=== PATIENT | female | born 2000 ===

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

== ENCOUNTER 2021-01-13 09:36 | Outpatient (REF) | payer OTHER, SELFPAY ==
[2021-01-14 03:30] LABS: CT PCR NOT DETECTED (Not Detect.); NG PCR NOT DETECTED (Not Detect.)
[2021-01-14 12:34] LABS: BV Int Neg Control Negative (Negative); BV Int Pos Control Positive (Positive)
== END 2021-01-13 09:37 | disposition home or self-care (01) ==
LOC: HO.LAB 09:36
PROVIDERS: Obstetrics & Gynecology; PCP Physician Assistant; Visit Provider Dietitian, Registered
DX: Z01.419 Encounter for gynecological examination (general) (routine) without abnormal findings (principal); R10.2 Pelvic and perineal pain; E28.2 Polycystic ovarian syndrome; Z20.2 Contact with and (suspected) exposure to infections with a predominantly sexual mode of transmission; E66.9 Obesity, unspecified; N28.9 Disorder of kidney and ureter, unspecified; Z71.3 Dietary counseling and surveillance
CPT/HCPCS: 81025; 87480; 87491; 87510; 87591; 87660; 97802

== ENCOUNTER → 2021-02-17 10:31 | Outpatient (BNVA) | payer OTHER, SELFPAY | PROVIDERS: PCP Pediatrics; Visit Provider Dietitian, Registered | DX: E66.9 Obesity, unspecified (principal) | CPT/HCPCS: 97803 ==

== ENCOUNTER → 2021-03-10 09:03 | Outpatient (BNVA) | payer OTHER, SELFPAY | PROVIDERS: PCP Pediatrics; Visit Provider Internal Medicine Endocrinology, Diabetes & Metabolism ==

== ENCOUNTER 2021-04-27 10:36 | Outpatient (REF) | payer OTHER, SELFPAY ==
--- NOTE | ~2021-04-27 | US_ITS ---
EXAMINATION: US PELVIS CLINICAL INFORMATION: Pelvic and perineal pain COMPARISON: Pelvic ultrasound 09/29/2020 TECHNIQUE: The pelvis was evaluated using transabdominal and transvaginal imaging. Color Doppler imaging of the bilateral ovaries was also performed. FINDINGS: The uterus measures 7.8 x 3.8 x 4.9 cm in longitudinal by AP by transverse dimension. The endometrial stripe measures 1.2 cm. The cervix measures approximately 2.7 cm in length. Small nabothian cysts identified. A small amount of fluid is noted within the endocervical canal. The left ovary measures approximately 3.2 x 2.4 x 1.9 cm and is normal. The right ovary measures approximately 4.4 x 2.5 x 2.2 cm and is also normal. Normal color Doppler flow of both ovaries. There are no abnormal adnexal masses. Small amount of free pelvic fluid in the pelvis. US/US pelvic and transvaginal IMPRESSION: Unremarkable sonographic imaging of the pelvis.
== END 2021-04-27 10:37 | disposition home or self-care (01) ==
LOC: HO.US 10:36
PROVIDERS: Visit Provider Obstetrics & Gynecology
DX: R10.2 Pelvic and perineal pain (principal)
CPT/HCPCS: 76830; 76856

== ENCOUNTER → 2021-05-08 11:40 | Outpatient (BNVA) | payer OTHER, SELFPAY | PROVIDERS: PCP Pediatrics; Visit Provider Obstetrics & Gynecology ==

== ENCOUNTER 2021-09-27 08:56 | Emergency (ER) | payer OTHER, SELFPAY ==
[2021-09-27 09:16] VITALS: BP 115/60; PULSE 61; RESP 19; TEMP 36.6; O2SAT 98; BMI 29.2
[2021-09-27 09:51] LABS: COVID-19 Test Negative (Negative)
--- NOTE | 2021-09-27 10:50 | ED.GENADULT ---
HPI - General Adult General Chief complaint: General Medical Stated complaint: body aches Time Seen by Provider: 09/27/21 11:00 Source: patient Mode of arrival: ambulatory Limitations: no limitations History of Present Illness HPI narrative: 21-year-old female presents to ED for body aches headache and chills. Patient states having symptoms for the past 2 days. Patient states her boyfriend recently tested positive for COVID. Patient states she is vaccinated with Pfizer 2 doses. Patient did not get booster shot. Patient denies any chest pain or shortness of breath Related Data Home Medications Medication Instructions Recorded Confirmed hydrocortisone 2.5 % topical cream appl TOPICAL BID PRN 10/13/20 03/10/21 hydrochlorothiazide 25 mg tablet 25 mg PO DAILY tab 12/02/20 03/10/21 loratadine 10 mg tablet (Claritin) 10 mg PO DAILY 01/13/21 03/10/21 Previous Rx's Medication Instructions Recorded norgestimate 0.25 mg-ethinyl 1 tab PO DAILY #84 tab 01/13/21 estradiol 35 mcg tablet (Sprintec (28)) Allergies Allergy/AdvReac Type Severity Reaction Status Date / Time No Known Allergies Allergy Verified 01/13/21 14:14 [No Known Allergies*] Review of Systems Review of Systems: Only symptoms are headache, body ache, and chills. Yes all other systems are reviewed and are negative PMF Past Medical History Medical History Asthma Chronic pyelonephritis Obesity (BMI 30-39.9) PCOS (polycystic ovarian syndrome) (~10/13/20) Renal disease Renal hypoplasia Suicidal ideations Surgical History No pertinent past surgical history Family History Family History Father No problems noted. Mother No problems noted. Social History Social History Alcohol intake: never Patient Tobacco Use Status: Never used Tobacco Substance Use Type: Marijuana Advance Directives: No Advance Directives Information Provided: No Patient : No Gender identity: Female Physical Exam Vital Signs: Vital Signs: Last Vital Signs Temp 98 F 09/27/21 09:16 Pulse 61 09/27/21 09:16 Resp 19 09/27/21 09:16 BP 115/60 09/27/21 09:16 Pulse Ox 98 09/27/21 09:16 BMI result Body Mass Index 29.2 Const: General: cooperative, healthy appearing, comfortable, no acute distress, well developed, alert, awake and Physically active Orientation/consciousness: patient oriented x3 HENMT: Head: Yes normal to inspection, Yes No palpable skull fracture present, Yes normocephalic and Yes atraumatic Ears: hearing grossly normal bilaterally, external ears normal, TM's normal bilaterally, EAC's normal, mastoids normal and no periauricular adenopathy Throat: Yes posterior oropharynx normal, Yes tonsils normal and Yes uvula midline Neck: Neck: Yes normal visual inspection, Yes full ROM, Yes no lymphadenopathy, Yes no meningeal signs, Yes trachea midline, Yes supple, No anterior neck swelling and No tender Chest: Chest palpation & inspection: normal inspection of the chest and normal palpation of entire chest wall Resp: Effort & Inspection: normal respiratory effort and able to speak in complete sentences Auscultation: clear to auscultation bilaterally Cardio: Jugular venous distension: no JVD Heart sounds: S1 normal heart sound present and S2 normal heart sound present GI: Inspection: Yes normal to inspection, No abdominal wall ecchymosis and Yes visible pulsation Palpation (GI): Soft to palpation, not firm, nontender, no guarding and not rigid : General: No CVA tenderness and Yes no CVA tenderness Back/Spine/Pelvis: Back: no CVA tenderness, No CVA tenderness and No back tenderness Skin: General skin exam: no rashes or lesions noted and elasticity normal Neuro: General: patient oriented x3, gait normal, no meningeal signs and CN's II-XI intact bilaterally Cranial nerves: Yes CN's II-XII intact bilaterally Extrem: General: Yes normal to inspection and Yes full ROM Psych: Appearance: grossly normal, well kempt and not disheveled Course Course Course Narrative: Patient tested for COVID Reevaluation(s) Reevaluation #1: COVID test negative. Patient informed Medical Decision Making MDM Narrative Medical decision making narrative: Viral syndrome Lab Data Labs: Lab Results 09/27/21 Range/Units 09:29 COVID-19 ([facility]YA) Negative (Negative) COVID-19 Clin Com See Note Discharge Plan Discharge Clinical Impression: Acute viral syndrome Patient Disposition: Home, Self-Care Instructions: Viral Syndrome (ED) Additional Instructions: You came back negative for COVID-19. This may be a false negative due to recent exposure. Recommend retesting in 5 days. Return to the ED immediately for any chest pain, shortness of breath, dizziness, weakness, or any other concerning symptoms. Prescriptions: No Action hydrocortisone 2.5 % cream topical BID PRNRF: 0 hydrochlorothiazide 25 mg tablet 25 mg PO DAILY RF: 0 loratadine [Claritin] 10 mg tablet 10 mg PO DAILY RF: 0 norgestimate-ethinyl estradiol [Sprintec (28)] 0.25-35 mg-mcg tablet 1 tab PO DAILY Qty: 84 RF: 3 Stand Alone Forms: Work/School Release Print Language: Singaporean
== END 2021-09-27 11:45 | disposition home or self-care (01) ==
LOC: HO.ED 11:20
PROVIDERS: Emergency Provider Emergency Medicine; PCP Pediatrics
DX: B34.9 Viral infection, unspecified (principal); Z20.822 Contact with and (suspected) exposure to COVID-19; R51.9 Headache, unspecified
CPT/HCPCS: 87635; 99283

== ENCOUNTER 2021-11-23 16:06 | Outpatient (REF) | payer OTHER, SELFPAY ==
[2021-11-23 16:42] LABS: Estimated Average Glucose 94 mg/dL; Hemoglobin A1c % 4.9 %
[2021-11-23 17:07] LABS: Alanine Aminotransferase 40 U/L (0-31); Albumin Level 4.5 g/dL (3.5-5.0); Alkaline Phosphatase 73 U/L (39-117); Anion Gap 11 (12-20); Aspartate Amino Transferase 17 U/L (5-31); Bilirubin Total 0.3 mg/dL (0.0-1.0); Blood Urea Nitrogen 15 mg/dL (9-16); Calcium 9.7 mg/dL (8.4-10.2); Carbon Dioxide 29 mmol/L (22-29); Chloride 103 mmol/L (96-108); Cholesterol 159 mg/dL; Estimated Glomerular Filt Rate > 60; Glucose Fasting 95 mg/dL (60-99); HDL Cholesterol 37 mg/dL; LDL Cholesterol Calculated 108 mg/dl; Potassium 4.2 mmol/L (3.3-5.1); Sodium 139 mmol/L (135-145); Total Protein 7.3 g/dL (6.5-8.0); Triglycerides 70 mg/dL
[2021-11-23 17:31] LABS: Free T4 (Free Thyroxine) 1.12 ng/dL (0.71-1.85)
[2021-11-24 14:11] LABS: DHEA Sulfate 350 mcg/dL (44-286); Follicle Stimulating Hormone 17.2 mIU/mL; Lutenizing Hormone 75.6 mIU/mL; Sex Hormone Binding Globulin 21 nmol/L (17-124)
[2021-11-28 14:22] LABS: Testosterone, Free 4.7 pg/mL (0.1-6.4); Testosterone, Total 26 ng/dL (2-45)
[2021-11-30 21:21] LABS: Estradiol Free 5.34 pg/mL; Estradiol, Ultrasensitive 216 pg/mL
[2021-12-01 19:27] LABS: 11-Deoxycortisol, LC/MS 25 ng/dL
== END 2021-11-23 16:07 | disposition home or self-care (01) ==
LOC: HO.LAB 16:06
PROVIDERS: PCP Physician Assistant; Visit Provider Internal Medicine Endocrinology, Diabetes & Metabolism
DX: E28.2 Polycystic ovarian syndrome (principal)
CPT/HCPCS: 36415; 80053; 80061; 82627; 82634; 82670; 82681; 83001; 83002; 83036; 83498; 84270; 84402; 84403; 84439; 84443

== ENCOUNTER → 2021-11-24 13:50 | Outpatient (BNVA) | payer OTHER, SELFPAY | PROVIDERS: PCP Physician Assistant; Visit Provider Internal Medicine Endocrinology, Diabetes & Metabolism | DX: E28.2 Polycystic ovarian syndrome (principal) | CPT/HCPCS: 99212 ==

== ENCOUNTER 2022-01-02 19:01 | Emergency (ER) | payer OTHER, SELFPAY ==
[2022-01-02 19:50] VITALS: BMI 28.3
[2022-01-02 19:55] VITALS: BP 128/76; PULSE 80; RESP 20; TEMP 37.1; O2SAT 100; BMI 28.3
[2022-01-02 20:01] LABS: MANUAL DIFF FLAG NO
[2022-01-02 20:03] LABS: Basophils Percent Auto 0.4 % (0-2); Eosinophils Absolute Auto 0.1 X10*3/uL (0.0-0.4); Eosinophils Percent Auto 1.4 % (0-4); Hematocrit 40.3 % (37.0-47.0); Hemoglobin 13.7 g/dl (12.0-16.0); Imm Gran Abs Auto 0.03 X10*3/uL (0.00-0.03); Imm Gran Pct Auto 0.3 % (0.0-0.4); Lymphocytes Absolute Auto 2.3 X10*3/uL (1.2-4.9); Lymphocytes Percent Auto 22.3 % (20-40); Mean Corpuscular Hemoglobin 29.8 pg (27.0-33.0); Mean Corpuscular Volume 87.6 fL (80.0-98.0); Mean Platelet Volume 9.8 fL (9.4-12.3); Monocytes Absolute Auto 0.6 X10*3/uL (0.1-1.2); Monocytes Percent Auto 5.6 % (2-11); Neutrophils Absolute Auto 7.3 x10*3/uL (2.0-8.3); Platelet Count 250 X10*3/uL (160-400); Red Cell Distribution Width 12.1 % (11.0-16.0); White Blood Count 10.4 X10*3/uL (4.8-10.8)
[2022-01-02 20:10] LABS: Appearance Urine CLEAR; Color Urine YELLOW; Glucose Urine UA NEG (NEG); Leukocyte Esterase Urine NEG (NEG); Nitrite Urine NEG (NEG); PH 6.5 (5.0-8.0); Urine Blood NEG (NEG); Urine Ketones NEG (NEG); Urine Protein NEG (NEG-TRACE)
[2022-01-02 20:12] LABS: UPreg QC Valid YES; Urine Pregnancy POSITIVE (NEGATIVE)
[2022-01-02 20:16] LABS: RBC Urine 0 /HPF (0); Squamous Epithelial Cell Urine 1+ /LPF; WBC Urine 0 /HPF (0-4)
[2022-01-02 20:16] LABS: Anion Gap 10 (12-20); Blood Urea Nitrogen 10 mg/dL (9-16); Calcium 9.3 mg/dL (8.4-10.2); Carbon Dioxide 26 mmol/L (22-29); Chloride 106 mmol/L (96-108); Creatinine Clr Calc Pharmacy 114.4; Estimated Glomerular Filt Rate > 60; Glucose Random 103 mg/dL (60-115); Potassium 4.2 mmol/L (3.3-5.1); Sodium 138 mmol/L (135-145)
--- NOTE | 2022-01-02 21:57 | ED.GENADULT ---
HPI - General Adult General Chief complaint: Weakness Stated complaint: nausea,dizziness,tired Time Seen by Provider: 01/02/22 21:35 Source: patient and family (Mother) Mode of arrival: ambulatory History of Present Illness HPI narrative: 21-year-old female without significant past medical history presents with missed menstruation and now feeling nauseous, fatigued but denies any vomiting, fevers, chills, GI or symptoms. She denies any abdominal pain or vaginal bleeding. Related Data Home Medications Medication Instructions Recorded Confirmed hydrocortisone 2.5 % topical cream appl TOPICAL BID PRN 10/13/20 03/10/21 hydrochlorothiazide 25 mg tablet 25 mg PO DAILY tab 12/02/20 11/24/21 loratadine 10 mg tablet (Claritin) 10 mg PO DAILY 01/13/21 11/24/21 Previous Rx's Medication Instructions Recorded norgestimate 0.25 mg-ethinyl 1 tab PO DAILY #84 tab 01/13/21 estradiol 35 mcg tablet (Sprintec (28)) metformin 500 mg tablet 1,000 mg PO BID 30 Days #120 tab 11/24/21 pyridoxine (vitamin B6) 25 mg 25 mg PO TID 30 Days #90 tab 01/02/22 tablet Allergies Allergy/AdvReac Type Severity Reaction Status Date / Time No Known Allergies Allergy Verified 11/24/21 13:53 [No Known Allergies*] Review of Systems Review of Systems: Pertinent positives and negatives as stated in HPI 10 point review of systems is otherwise negative. [facility] Past Medical History Source: nursing notes reviewed Medical History Asthma Chronic pyelonephritis Obesity (BMI 30-39.9) PCOS (polycystic ovarian syndrome) (~10/13/20) Renal disease Renal hypoplasia Suicidal ideations Surgical History No pertinent past surgical history Family History Family History Father No problems noted. Mother No problems noted. Social History Social History Alcohol intake: current Alcohol intake frequency: does not drink Patient Tobacco Use Status: Never used Tobacco Substance Use Type: Marijuana Advance Directives: No Advance Directives Information Provided: No Gender identity: Female Physical Exam ED Vital Signs: Vital Signs - 24 hr 01/02/22 19:55 Temperature 98.7 F Pulse Rate 80 Respiratory Rate 20 Blood Pressure 128/76 Pulse Oximetry 100 BMI result Body Mass Index 28.3 VITAL SIGNS: Reviewed. GENERAL: Well developed, well nourished, in no acute distress. HEAD: Normocephalic/atraumatic EYES: PERRLA, EOMI EARS: Ext canals without abnormality NOSE: Nares patent bilateral OROPHARYNX: no oral lesions noted, posterior pharynx clear LUNGS: Normal breath sounds. No adventitious sounds or accessory muscle use. SpO2<100> CARDIOVASCULAR: Regular rate and rhythm without noted murmurs ABDOMEN: Soft, non-tender, non-distended with bowel sounds. SKIN: Inspection of the skin reveals no rashes NEUROLOGIC: Alert and oriented x 4. Strength and sensation to light touch were grossly intact x 4. Course Course Course Narrative: 21-year-old female with history and clinical presentation after review of all investigations consistent with and no evidence acute infection, anemia. Patient recommended to start on vitamins and follow-up with an gang punch operator. There is no evidence or concern for SAB at this time. Medical Decision Making Lab Data Result diagrams: 01/02/22 19:56 01/02/22 19:57 Labs: Lab Results 01/02/22 01/02/22 01/02/22 Range/Units 19:56 19:57 20:04 WBC 10.4 (4.8-10.8) X10*3/uL RBC 4.60 (4.20-5.50) X10*6/uL Hgb 13.7 (12.0-16.0) g/dl Hct 40.3 (37.0-47.0) % MCV 87.6 (80.0-98.0) fL MCH 29.8 (27.0-33.0) pg MCHC 34.0 (31.0-35.0) g/dl RDW 12.1 (11.0-16.0) % Plt Count 250 (160-400) X10*3/uL MPV 9.8 (9.4-12.3) fL Immature Gran % (Auto) 0.3 (0.0-0.4) % Neut % (Auto) 70.0 (45-73) % Lymph % (Auto) 22.3 (20-40) % [place] % (Auto) 5.6 (2-11) % Eos % (Auto) 1.4 (0-4) % Baso % (Auto) 0.4 (0-2) % Lymph # (Auto) 2.3 (1.2-4.9) X10*3/uL [place] # (Auto) 0.6 (0.1-1.2) X10*3/uL Eos # (Auto) 0.1 (0.0-0.4) X10*3/uL Baso # (Auto) 0.0 (0.0-0.2) X10*3/uL Abs Immat Gran (auto) 0.03 (0.00-0.03) X10*3/uL Absolute Neuts (auto) 7.3 (2.0-8.3) x10*3/uL Absolute Nucleated RBC 0.000 (0.0-0.012) X10*3/uL Nucleated RBC % (auto) 0.0 (0.0-0.2) /100WBC Sodium 138 (135-145) mmol/L Potassium 4.2 (3.3-5.1) mmol/L Chloride 106 (96-108) mmol/L Carbon Dioxide 26 (22-29) mmol/L Anion Gap 10 L (12-20) BUN 10 (9-16) mg/dL Creatinine 0.72 (0.5-1.4) mg/dL Estim Creat Clear Calc 114.4 Estimated GFR > 60 Random Glucose 103 (60-115) mg/dL Calcium 9.3 (8.4-10.2) mg/dL Urine Color Urine Appearance Urine pH (5.0-8.0) Ur Specific Friend (1.005-1.025) Urine Protein (NEG-TRACE) MG/DL Urine Glucose (UA) (NEG) MG/DL Urine Ketones (NEG) MG/DL Urine Blood (NEG) Urine Nitrite (NEG) Ur Leukocyte Esterase (NEG) Urine RBC (0) /HPF Urine WBC (0-4) /HPF Ur Squamous Epith Cells /LPF Urine Bacteria /LPF Urine Test POSITIVE H (NEGATIVE) 01/02/22 Range/Units 20:04 WBC (4.8-10.8) X10*3/uL RBC (4.20-5.50) X10*6/uL Hgb (12.0-16.0) g/dl Hct (37.0-47.0) % MCV (80.0-98.0) fL MCH (27.0-33.0) pg MCHC (31.0-35.0) g/dl RDW (11.0-16.0) % Plt Count (160-400) X10*3/uL MPV (9.4-12.3) fL Immature Gran % (Auto) (0.0-0.4) % Neut % (Auto) (45-73) % Lymph % (Auto) (20-40) % [place] % (Auto) (2-11) % Eos % (Auto) (0-4) % Baso % (Auto) (0-2) % Lymph # (Auto) (1.2-4.9) X10*3/uL [place] # (Auto) (0.1-1.2) X10*3/uL Eos # (Auto) (0.0-0.4) X10*3/uL Baso # (Auto) (0.0-0.2) X10*3/uL Abs Immat Gran (auto) (0.00-0.03) X10*3/uL Absolute Neuts (auto) (2.0-8.3) x10*3/uL Absolute Nucleated RBC (0.0-0.012) X10*3/uL Nucleated RBC % (auto) (0.0-0.2) /100WBC Sodium (135-145) mmol/L Potassium (3.3-5.1) mmol/L Chloride (96-108) mmol/L Carbon Dioxide (22-29) mmol/L Anion Gap (12-20) BUN (9-16) mg/dL Creatinine (0.5-1.4) mg/dL Estim Creat Clear Calc Estimated GFR Random Glucose (60-115) mg/dL Calcium (8.4-10.2) mg/dL Urine Color YELLOW Urine Appearance CLEAR Urine pH 6.5 (5.0-8.0) Ur Specific Friend 1.020 (1.005-1.025) Urine Protein NEG (NEG-TRACE) MG/DL Urine Glucose (UA) NEG (NEG) MG/DL Urine Ketones NEG (NEG) MG/DL Urine Blood NEG (NEG) Urine Nitrite NEG (NEG) Ur Leukocyte Esterase NEG (NEG) Urine RBC 0 (0) /HPF Urine WBC 0 (0-4) /HPF Ur Squamous Epith Cells 1+ /LPF Urine Bacteria NONE /LPF Urine Test (NEGATIVE) Discharge Plan Discharge Clinical Impression: Early stage of , related nausea, antepartum Patient Disposition: Home, Self-Care Instructions: Vitamins (By mouth), Vitamin B Complex (By mouth), Nausea and Vomiting in (ED), (ED) Additional Instructions: 1. Comience a jerald vitaminas prenatales. 2. Se le hawk proporcionado juana receta de medicamentos contra las n?useas para usar arin el embarazo 3. Deber? aumentar la cantidad de agua que ingiere debido a denton enfermedad renal subyacente en el contexto de estar embarazada. 4. Establecer atenci?n con un obstetra lo antes posible. Regrese a la yuniel de emergencias por cualquier dificultad, maddy calambres o dolor abdominal bajo, sangrado vaginal. Prescriptions: New pyridoxine (vitamin B6) 25 mg tablet 25 mg PO TID 30 Days Qty: 90 0RF No Action hydrocortisone 2.5 % cream topical BID PRN0RF hydrochlorothiazide 25 mg tablet 25 mg PO DAILY 0RF loratadine [Claritin] 10 mg tablet 10 mg PO DAILY 0RF norgestimate-ethinyl estradiol [Sprintec (28)] 0.25-35 mg-mcg tablet 1 tab PO DAILY Qty: 84 3RF metformin 500 mg tablet 1,000 mg PO BID 30 Days Qty: 120 4RF Referrals: Jeimy Perez PA-C [Primary Care Provider] - (Patient is ) Print Language: Dutch
== END 2022-01-02 22:46 | disposition home or self-care (01) ==
PROVIDERS: Emergency Provider Student in an Organized Health Care Education/Training Program; PCP Physician Assistant
DX: R53.1 Weakness (principal); R42 Dizziness and giddiness; Z79.899 Other long term (current) drug therapy
CPT/HCPCS: 36415; 80048; 81001; 81025; 85025; 99283; 99284

== ENCOUNTER → 2022-01-17 10:52 | Outpatient (BNVA) | payer OTHER, SELFPAY | PROVIDERS: PCP Physician Assistant; Visit Provider Advanced Practice Midwife | DX: Z32.01 Encounter for pregnancy test, result positive (principal); E28.2 Polycystic ovarian syndrome; N28.9 Disorder of kidney and ureter, unspecified; Z87.42 Personal history of other diseases of the female genital tract | CPT/HCPCS: 81025; 99202 ==

== ENCOUNTER 2022-01-19 10:19 | Outpatient (REF) | payer OTHER, SELFPAY ==
--- NOTE | ~2022-01-19 | US_ITS ---
EXAMINATION: OBSTETRICAL ULTRASOUND, FIRST TRIMESTER HISTORY: 21-year-old at 6.5 weeks of gestation Viability LMP: 12/03/2021 COMPARISON: None in this TECHNIQUE: Real time transabdominal imaging with color and M-mode Doppler. FINDINGS: A single, live IUP CRL of 3.5 mm c/w 6.0wks is noted. Heart Rate: 106 beats per minute. Both maternal ovaries are seen and appear normal. GESTATIONAL AGE: 1. GA from LMP: 6.5 wks 2. GA from AUA: 6.0 wks ESTIMATED DATE OF DELIVERY: 1. IFEOMA from LMP: 09/09/2022 2. IFEOMA from AUA: 09/14/2022 US/US OB <= 14 weeks fetus IMPRESSION: 1. A single live IUP 2. CRL consistent with 6.0 weeks 3. heart rate of 106 bpm is at the low end of normal for this gestational age. Thank you very much for this referral. This note was generated with a voice recognition program. Please excuse any errors which may have been overlooked during my review of this note. Sometimes these errors may affect the content or meaning of a given sentence.
== END 2022-01-19 10:20 | disposition home or self-care (01) ==
LOC: HO.US 10:19
PROVIDERS: Visit Provider Advanced Practice Midwife
DX: O99.281 Endocrine, nutritional and metabolic diseases complicating pregnancy, first trimester (principal); O26.891 Other specified pregnancy related conditions, first trimester; E28.2 Polycystic ovarian syndrome; N28.9 Disorder of kidney and ureter, unspecified; Z3A.01 Less than 8 weeks gestation of pregnancy
CPT/HCPCS: 76801

== ENCOUNTER 2023-01-12 12:00 | Emergency (ER) | payer OTHER, SELFPAY ==
[2023-01-12 12:04] VITALS: BP 129/78; PULSE 100; RESP 20; TEMP 36.8; O2SAT 98; BMI 30.4
--- NOTE | 2023-01-12 12:04 | ED_ITS ---
HPI - General Adult General Chief complaint: General Medical <NACHO Byers Last Filed: 01/12/23 12:08> Stated complaint: headache redness on r breast <NACHO Byers Last Filed: 01/12/23 12:08> Time Seen by Provider: 01/12/23 12:53 <NACHO Byers Last Filed: 01/12/23 12:08> Source: patient <NACHO Rosado Last Filed: 01/12/23 15:48> Mode of arrival: ambulatory <NACHO Rosado Last Filed: 01/12/23 15:48> Limitations: no limitations <NACHO Rosado Last Filed: 01/12/23 15:48> History of Present Illness HPI narrative: Patient is a 22 year old assigned female at with a history of PCOS presenting to the emergency department today with right breast pain and a headache. Patient states that she has been breast feeding and has noticed her right breast is warm, red, and swollen. Patient states that she also has a head ache. Patient denies any dizziness, lightheadedness, abdominal pain, nausea, vomiting, fever, chills, blurry vision, double vision, loss of vision, chest pain, difficulty breathing, shortness of breath, back pain, night sweats, pain with urination, increased urinary frequency, increased urinary urgency, blood in her urine or stool, syncope or a near syncopal episode, recent trauma or falls, bowel incontinence, bladder incontinence, bowel retention, bladder retention, or any other complaints at this time. <NACHO Rosado Last Filed: 01/12/23 15:48> Onset (ago): hour(s) <NACHO Rosado Last Filed: 01/12/23 15:48> Severity: mild <NACHO Rosado Last Filed: 01/12/23 15:48> Severity scale (1-10): 2 <NACHO Rosado Last Filed: 01/12/23 15:48> Relieving factors: none <NACHO Rosado Last Filed: 01/12/23 15:48> Exacerbating factors: none <NACHO Rosado Last Filed: 01/12/23 15:48> Associated symptoms: denies other symptoms <NACHO Rosado Last Filed: 01/12/23 15:48> Treatments prior to arrival: none <NACHO Rosado Last Filed: 01/12/23 15:48> Related Data Home medications: Home Medications Medication Instructions Recorded Confirmed prenat.vits,tony,[id number] 1 tab PO DAILY 01/17/22 01/17/22 Previous Rx's Medication Instructions Recorded cephalexin 500 mg capsule 500 mg PO Q6H 10 days #40 caps 01/12/23 <NACHO Byers Last Filed: 01/12/23 12:08> Allergies/adverse reactions: Allergies Allergy/AdvReac Type Severity Reaction Status Date / Time No Known Allergies Allergy Verified 01/17/22 11:00 [No Known Allergies*] <NACHO Byers Last Filed: 01/12/23 12:08> Review of Systems Constitutional: Constitutional: Reports no additional constitutional complaints, Denies chills, Denies fever(s), Reports headache(s) and Denies night sweats <NACHO Rosado Last Filed: 01/12/23 15:48> Eyes: Eyes: Reports no additional eye complaints, Denies blurry vision, Denies change in vision, Denies diplopia, Denies eye discharge, Denies loss of vision and Denies eye pain <NACHO Rosado Last Filed: 01/12/23 15:48> ENT: Denies dizziness and Reports headache(s) <NACHO Rosado Last Filed: 01/12/23 15:48> Cardiovascular: Cardiovascular: Reports no additional cardiovascular complaints, Denies chest pain, Denies lightheadedness, Denies Loss of Consciousness and Denies dyspnea <NACHO Rosado Last Filed: 01/12/23 15:48> Respiratory: Respiratory: Reports no additional respiratory complaints and Denies dyspnea <NACHO Rosado Last Filed: 01/12/23 15:48> Gastrointestinal: Gastrointestinal: Reports no additional gastrointestinal complaints, Denies abdominal pain, Denies melena, Denies hematochezia, Denies change in bowel habits and Denies change in stool character <NACHO Rosado Last Filed: 01/12/23 15:48> Genitourinary: Genitourinary: Denies hematuria, Denies urinary frequency, Denies dysuria, Denies urinary incontinence, Denies urinary hesitancy and Denies urinary urgency <NACHO Rosado - Last Filed: 01/12/23 15:48> Musculoskeletal: Musculoskeletal: Reports no additional musculoskeletal complaints, Denies numbness and Denies tingling <NACHO Rosado - Last Filed: 01/12/23 15:48> Integumentary/Breasts: Comments: right chest pain, swelling ,and redness <NACHO Rosado - Last Filed: 01/12/23 15:48> Neurologic: Denies dizziness, Reports headache(s), Denies loss of vision, Denies numbness and Denies tingling <NACHO Rosado - Last Filed: 01/12/23 15:48> Psychiatric: Psychiatric: Reports no additional psychiatric complaints <NACHO Rosado - Last Filed: 01/12/23 15:48> Endocrine: Endocrine: Reports no additional endocrine complaints <NACHO Rosado - Last Filed: 01/12/23 15:48> Hematologic/Lymphatic: Hematologic/Lymphatic: Reports no additional hematologic/lymphatic complaints <NACHO Rosado - Last Filed: 01/12/23 15:48> Allergic/Immunologic: Allergic/Immunologic: Reports no additional allergic/imm unologic complaints <NACHO Rosado - Last Filed: 01/12/23 15:48> PMFSH Past Medical History Attestation statement: The following information was validated with the patient. <NACHO Rosado - Last Filed: 01/12/23 15:48> Source: old records reviewed and nursing notes reviewed <NACHO Rosado - Last Filed: 01/12/23 15:48> Medical History: Medical History Asthma Chronic pyelonephritis Obesity (BMI 30-39.9) PCOS (polycystic ovarian syndrome) (~10/13/20) Renal disease Renal hypoplasia Suicidal ideations <NACHO Byers - Last Filed: 01/12/23 12:08> Surgical History: Surgical History No pertinent past surgical history <NACHO Byers - Last Filed: 01/12/23 12:08> Family History Family History: Family History Father No problems noted. Mother No problems noted. <NACHO Byers - Last Filed: 01/12/23 12:08> Social History Social History: Social History Alcohol intake: current Alcohol intake frequency: does not drink Patient Tobacco Use Status: Never used Tobacco Substance Use Type: Marijuana Advance Directives: No Advance Directives Information Provided: No Gender identity: Female <NACHO Byers - Last Filed: 01/12/23 12:08> Physical Exam ED Vital Signs: Vital Signs - 24 hr 01/12/23 12:04 Temperature 98.2 F Pulse Rate 100 Respiratory Rate 20 Blood Pressure 129/78 Pulse Oximetry 98 Oxygen Delivery Method Room Air BMI result Body Mass Index 30.4 <NACHO Byers - Last Filed: 01/12/23 12:08> Vital Signs - 24 hr 01/12/23 12:04 Temperature 98.2 F Pulse Rate 100 Respiratory Rate 20 Blood Pressure 129/78 Pulse Oximetry 98 Oxygen Delivery Method Room Air BMI result Body Mass Index 30.4 <NACHO Rosado - Last Filed: 01/12/23 15:48> Const General: cooperative, no acute distress, alert and awake <NACHO Rosado - Last Filed: 01/12/23 15:48> Nutritional Appearance: well nourished <NACHO Rosado - Last Filed: 01/12/23 15:48> Orientation/consciousness: patient oriented x3 <NACHO Rosado - Last Filed: 01/12/23 15:48> Limitations: no limitations <NACHO Rosado Last Filed: 01/12/23 15:48> HENMT Head: Yes normal to inspection and Yes atraumatic <NACHO Rosado - Last Filed: 01/12/23 15:48> Ears: hearing grossly normal bilaterally and external ears normal <NACHO Rosado Last Filed: 01/12/23 15:48> General nose exam: Normal external nose present, no nasal discharge noted and no epistaxis <Marissa Harry [place] - Last Filed: 01/12/23 15:48> Face and sinus: Yes normal facial exam, No abrasion and No laceration <Marissa Harry TN - Last Filed: 01/12/23 15:48> Mouth: Normal oral and palatal mucosa present, no drooling and no muffled voice <Marissa Harry TN - Last Filed: 01/12/23 15:48> Eyes General: appearance normal, both eyes and all related structures <Marissa Harry TN - Last Filed: 01/12/23 15:48> Periorbital: periorbital findings normal <Marissa Harry TN - Last Filed: 01/12/23 15:48> Eyelids: Yes eyelids normal <Marissa Harry TN - Last Filed: 01/12/23 15:48> Conjunctivae: conjunctivae normal <Marissa Stantonroger [place] - Last Filed: 01/12/23 15:48> Pupils: Equal, round and reactive pupils present <Marissa Stantonroger [place] - Last Filed: 01/12/23 15:48> EOM: EOMs intact bilaterally <Marissa Stantonroger TN - Last Filed: 01/12/23 15:48> Neck Neck: Yes normal visual inspection, Yes full ROM and Yes no lymphadenopathy <Marissa Stantonroger TN - Last Filed: 01/12/23 15:48> Chest Other: minimal redness and warmth to the 10 o'clock position of the right breast <Marissa Stantonroger TN - Last Filed: 01/12/23 15:48> Resp Effort & Inspection: normal respiratory effort and able to speak in complete sentences <Marissa Stantonroger TN - Last Filed: 01/12/23 15:48> GI Inspection: Yes normal to inspection <Marissa Stantonroger TN - Last Filed: 01/12/23 15:48> Neuro General: patient oriented x3 and moves all extremities <Marissa Stantonroger TN - Last Filed: 01/12/23 15:48> Cranial nerves: Yes Equal, round and reactive pupils present <Marissa Stantonroger [place] - Last Filed: 01/12/23 15:48> Cognition (Neuro): normal cognition <[place] Stantonroger [place] - Last Filed: 01/12/23 15:48> Motor exam (neuro): 5/5 motor strength present throughout <Marissa HarryNACHO - Last Filed: 01/12/23 15:48> Sensory Exam: Normal double simultaneous stimulation for sensation <Marissa Harry TN - Last Filed: 01/12/23 15:48> Coordination: [id number] test normal <Marissa Harry TN - Last Filed: 01/12/23 15:48> Extrem General: Yes normal to inspection, Yes full ROM and Yes capillary refill normal <Marissa HarryNACHO - Last Filed: 01/12/23 15:48> Psych Appearance: grossly normal <Marissa HarryNACHO - Last Filed: 01/12/23 15:48> Mental Status: mental status grossly normal <Marissa HarryNACHO - Last Filed: 01/12/23 15:48> Affect: normal affect <Marissa HarryNACHO - Last Filed: 01/12/23 15:48> Attitude: cooperative <Marissa HarryNACHO - Last Filed: 01/12/23 15:48> Thought process: Normal thought process present <Marissa HarryNACHO - Last Filed: 01/12/23 15:48> Thought content: Normal thought content present <Marissa HarryNACHO - Last Filed: 01/12/23 15:48> Insight: Good insight present (Psych) <Marissa HarryNACHO - Last Filed: 01/12/23 15:48> Course Course Course Narrative: RME - 80 presenting to the emergency department with complaints of headache since this morning and right breast pain since last night. She is currently breast feeding, and noticed pain in her right breast and woke up this morning and her right breast was red and swollen. Given privacy in triage room did not examine right breast and defer physical exam until patient is seen in the main ER. Patient has no fevers or chills. No hx of mastitis in the past. Will defer imaging to provider's discretion based on examination. VSS. Pt stable to return to the waiting room until a treatment room becomes available in the main ER. <NACHO Byers - Last Filed: 01/12/23 12:08> Medical Decision Making Medical Decision Making MDM Narrative: Patient is a 22 year old assigned female at with a history of PCOS presenting to the emergency department today with right breast pain and a headache. Patient's physical exam showed minimal redness and warmth to the 10 o'clock position of the right breast. Patient's blood work was unremarkable. I explained my physical exam findings as well as all test results to the patient. I answered all questions asked by the patient. I stressed the importance of the patient taking her medication as prescribed. I stressed the importance of the patient following up with her primary care provider. I stressed the importance of the patient returning to the emergency department immediately if her symptoms were to worsen or if she were to develop any dizziness, shortness of breath, difficulty breathing, chest pain, blurry vision, loss of vision, nausea, vomiting, abdominal pain, fever, chills, back pain, or any other complaints. Patient verbalized agreement and understanding with this treatment plan and discharge. <NACHO Rosado - Last Filed: 01/12/23 15:48> Differential Diagnosis Differential Diagnoses: The differential diagnosis associated with the presentation includes <NACHO Rosado - Last Filed: 01/12/23 15:48> mastitis, headache <NACHO Rosado - Last Filed: 01/12/23 15:48> Lab Data [facility] Lab Attestation statement: I reviewed the patient's lab results. <NACHO Rosado - Last Filed: 01/12/23 15:48> Result Diagrams: 01/12/23 13:44 01/12/23 13:44 <NACHO Byers - Last Filed: 01/12/23 12:08> Labs: Lab Results 01/12/23 01/12/23 01/12/23 Range/Units 13:44 13:44 13:44 WBC 12.1 H (4.8-10.8) X10*3/uL RBC 4.96 (4.20-5.50) X10*6/uL Hgb 14.1 (12.0-16.0) g/dl Hct 41.1 (37.0-47.0) % MCV 82.9 (80.0-98.0) fL MCH 28.4 (27.0-33.0) pg MCHC 34.3 (31.0-35.0) g/dl RDW 12.3 (11.0-16.0) % Plt Count 236 (160-400) X10*3/uL MPV 9.7 (9.4-12.3) fL Immature Gran % (Auto) 0.2 (0.0-0.4) % Neut % (Auto) 79.3 H (45-73) % Lymph % (Auto) 13.6 L (20-40) % Spalding % (Auto) 5.9 (2-11) % Eos % (Auto) 0.6 (0-4) % Baso % (Auto) 0.4 (0-2) % Lymph # (Auto) 1.7 (1.2-4.9) X10*3/uL Spalding # (Auto) 0.7 (0.1-1.2) X10*3/uL Eos # (Auto) 0.1 (0.0-0.4) X10*3/uL Baso # (Auto) 0.1 (0.0-0.2) X10*3/uL Abs Immat Gran (auto) 0.03 (0.00-0.03) X10*3/uL Absolute Neuts (auto) 9.6 H (2.0-8.3) x10*3/uL Absolute Nucleated RBC 0.000 (0.0-0.012) X10*3/uL Nucleated RBC % (auto) 0.0 (0.0-0.2) /100WBC Sodium 138 (135-145) mmol/L Potassium 4.8 (3.3-5.1) mmol/L Chloride 104 (96-108) mmol/L Carbon Dioxide 24 (22-29) mmol/L Anion Gap 15 (12-20) BUN 11 (9-16) mg/dL Creatinine 0.69 (0.5-1.4) mg/dL Estim Creat Clear Calc 151.9 Estimated GFR > 60 Random Glucose 83 (60-115) mg/dL Calcium 9.4 (8.4-10.2) mg/dL Magnesium 1.9 (1.6-2.6) mg/dL Total Bilirubin 1.0 (0.0-1.0) mg/dL AST 31 (5-31) U/L ALT 56 H (0-31) U/L Alkaline Phosphatase 139 H (39-117) U/L Total Protein 7.5 (6.5-8.0) g/dL Albumin 4.4 (3.5-5.0) g/dL Beta HCG, Quant < 2 mIU/mL <NACHO Byers - Last Filed: 01/12/23 12:08> Lab Results 01/12/23 01/12/23 01/12/23 Range/Units 13:44 13:44 13:44 WBC 12.1 H (4.8-10.8) X10*3/uL RBC 4.96 (4.20-5.50) X10*6/uL Hgb 14.1 (12.0-16.0) g/dl Hct 41.1 (37.0-47.0) % MCV 82.9 (80.0-98.0) fL MCH 28.4 (27.0-33.0) pg MCHC 34.3 (31.0-35.0) g/dl RDW 12.3 (11.0-16.0) % Plt Count 236 (160-400) X10*3/uL MPV 9.7 (9.4-12.3) fL Immature Gran % (Auto) 0.2 (0.0-0.4) % Neut % (Auto) 79.3 H (45-73) % Lymph % (Auto) 13.6 L (20-40) % Spalding % (Auto) 5.9 (2-11) % Eos % (Auto) 0.6 (0-4) % Baso % (Auto) 0.4 (0-2) % Lymph # (Auto) 1.7 (1.2-4.9) X10*3/uL Spalding # (Auto) 0.7 (0.1-1.2) X10*3/uL Eos # (Auto) 0.1 (0.0-0.4) X10*3/uL Baso # (Auto) 0.1 (0.0-0.2) X10*3/uL Abs Immat Gran (auto) 0.03 (0.00-0.03) X10*3/uL Absolute Neuts (auto) 9.6 H (2.0-8.3) x10*3/uL Absolute Nucleated RBC 0.000 (0.0-0.012) X10*3/uL Nucleated RBC % (auto) 0.0 (0.0-0.2) /100WBC Sodium 138 (135-145) mmol/L Potassium 4.8 (3.3-5.1) mmol/L Chloride 104 (96-108) mmol/L Carbon Dioxide 24 (22-29) mmol/L Anion Gap 15 (12-20) BUN 11 (9-16) mg/dL Creatinine 0.69 (0.5-1.4) mg/dL Estim Creat Clear Calc 151.9 Estimated GFR > 60 Random Glucose 83 (60-115) mg/dL Calcium 9.4 (8.4-10.2) mg/dL Magnesium 1.9 (1.6-2.6) mg/dL Total Bilirubin 1.0 (0.0-1.0) mg/dL AST 31 (5-31) U/L ALT 56 H (0-31) U/L Alkaline Phosphatase 139 H (39-117) U/L Total Protein 7.5 (6.5-8.0) g/dL Albumin 4.4 (3.5-5.0) g/dL Beta HCG, Quant < 2 mIU/mL <NACHO Rosado - Last Filed: 01/12/23 15:48> Discharge Plan Discharge Clinical Impression: Mastitis <NACHO Byers - Last Filed: 01/12/23 12:08> Patient Disposition: Home, Self-Care <NACHO Byers - Last Filed: 01/12/23 12:08> Instructions: Mastitis (ED) <NACHO Byers - Last Filed: 01/12/23 12:08> Additional Instructions: Follow up with your primary care provider. Return to the emergency department immediately if your symptoms worsen or if you develop any dizziness, shortness of breath, difficulty breathing, chest pain, blurry vision, loss of vision, nausea, vomiting, abdominal pain, fever, chills, back pain, or any other complaints. <NACHO Byers - Last Filed: 01/12/23 12:08> Prescriptions: New cephalexin 500 mg capsule 500 mg PO Q6H 10 Days Qty: 40 0RF No Action prenat.vits,tony,[id number]-[id number]-[id number] Tablet 1 tab PO DAILY <NACHO Byers - Last Filed: 01/12/23 12:08> Referrals: [facility] Family Medicine [Provider Group] (Call to establish and follow up with a primary care provider. If you already have a primary care provider, please follow up with them.) [facility] [facility], [facility] [Provider Group] (Call to establish and follow up with a primary care provider. If you already have a primary care provider, please follow up with them.) [facility] [place] [facility] [Provider Group] (Call to establish and follow up with a primary care provider. If you already have a primary care provider, please follow up with them.) <NACHO Byers - Last Filed: 01/12/23 12:08> Stand Alone Forms: Work/School Release <NACHO Byers - Last Filed: 01/12/23 12:08> Print Language: Lithuanian <NACHO Byers - Last Filed: 01/12/23 12:08>
--- NOTE | 2023-01-12 13:48 | PC.NURSE ---
Labs drawn and sent for analysis. Awaiting results. Provider (Marissa GRIFFITH) evaluated the patient. ?Right breast mastitis. Pt is 4 months with baby boy. Pt exclusively breastfeeds. Pt verbalized that she does not know how to manually express breastmilk. This RN to teach Aletheaelys how to manually/hand express breastmilk. Pt noticed redness & increased soreness last night, slightly worse this morning. Pt states that she has an IUD in place, HCG level pending.
[2023-01-12 13:52] LABS: MANUAL DIFF FLAG NO
[2023-01-12 13:53] LABS: Basophils Absolute Auto 0.1 X10*3/uL (0.0-0.2); Basophils Percent Auto 0.4 % (0-2); Eosinophils Absolute Auto 0.1 X10*3/uL (0.0-0.4); Eosinophils Percent Auto 0.6 % (0-4); Hematocrit 41.1 % (37.0-47.0); Hemoglobin 14.1 g/dl (12.0-16.0); Imm Gran Abs Auto 0.03 X10*3/uL (0.00-0.03); Imm Gran Pct Auto 0.2 % (0.0-0.4); Lymphocytes Absolute Auto 1.7 X10*3/uL (1.2-4.9); Lymphocytes Percent Auto 13.6 % (20-40); Mean Corpuscular HGB Conc 34.3 g/dl (31.0-35.0); Mean Corpuscular Hemoglobin 28.4 pg (27.0-33.0); Mean Corpuscular Volume 82.9 fL (80.0-98.0); Mean Platelet Volume 9.7 fL (9.4-12.3); Monocytes Absolute Auto 0.7 X10*3/uL (0.1-1.2); Monocytes Percent Auto 5.9 % (2-11); Neutrophils Absolute Auto 9.6 x10*3/uL (2.0-8.3); Neutrophils Percent Auto 79.3 % (45-73); Platelet Count 236 X10*3/uL (160-400); Red Blood Count 4.96 X10*6/uL (4.20-5.50); Red Cell Distribution Width 12.3 % (11.0-16.0); White Blood Count 12.1 X10*3/uL (4.8-10.8)
[2023-01-12 14:55] LABS: Alanine Aminotransferase 56 U/L (0-31); Albumin Level 4.4 g/dL (3.5-5.0); Alkaline Phosphatase 139 U/L (39-117); Anion Gap 15 (12-20); Aspartate Amino Transferase 31 U/L (5-31); Blood Urea Nitrogen 11 mg/dL (9-16); Calcium 9.4 mg/dL (8.4-10.2); Carbon Dioxide 24 mmol/L (22-29); Chloride 104 mmol/L (96-108); Creatinine Clr Calc Pharmacy 151.9; Estimated Glomerular Filt Rate > 60; Glucose Random 83 mg/dL (60-115); Magnesium 1.9 mg/dL (1.6-2.6); Potassium 4.8 mmol/L (3.3-5.1); Sodium 138 mmol/L (135-145); Total Protein 7.5 g/dL (6.5-8.0)
[2023-01-12 15:06] LABS: HCG Quantitative < 2 mIU/mL
== END 2023-01-12 16:00 | disposition home or self-care (01) ==
PROVIDERS: Physician Assistant Medical; Emergency Provider Emergency Medicine
DX: N61.0 Mastitis without abscess (principal)
CPT/HCPCS: 36415; 80053; 83735; 84702; 85025; 99283

== ENCOUNTER 2023-10-15 11:36 | Emergency (ER) | payer OTHER, SELFPAY ==
[2023-10-15 11:55] VITALS: BP 118/75; PULSE 106; RESP 18; TEMP 36.5; O2SAT 98; BMI 33.7
--- NOTE | 2023-10-15 11:57 | ED.GENADULT ---
HPI - General Adult General Chief complaint: Nausea/Vomiting/Diarrhea Stated complaint: headache, vomiting, diarrhea Time Seen by Provider: 10/15/23 13:12 Source: patient and RN notes reviewed Mode of arrival: ambulatory Limitations: no limitations History of Present Illness HPI narrative: This is a 23-year-old female presenting to the emergency department with complaints of headache, chills, nausea, vomiting, diarrhea which started at 5:00 p.m. last night. She denies any recent sick contacts. She is currently breast-feeding. Denies any fevers, chest pain, shortness breast, cough, sore throat. She does endorse urinary frequency, denies dysuria, hematuria, or urgency. She denies taking any medications at home to treat her current symptoms. Denies eating any undercooked or raw food. Denies hemoptysis or bloody or black diarrhea. Denies any other complaints or concerns at this time. MD complaint: Diarrhea, headache, chills Onset (ago): day(s) Radiation: non-radiation Quality: aching Pain Consistency: constant Relieving factors: none Exacerbating factors: none Associated symptoms: denies other symptoms Treatments prior to arrival: none Related Data Home Medications Medication Instructions Recorded Confirmed prenat.vits,tony,[id number] 1 tab PO DAILY 01/17/22 01/17/22 Previous Rx's Medication Instructions Recorded cephalexin 500 mg capsule 500 mg PO Q6H 10 days #40 caps 01/12/23 ondansetron 4 mg disintegrating 4 mg PO Q6-8H PRN nausea and 10/15/23 tablet vomiting #10 tabs Allergies Allergy/AdvReac Type Severity Reaction Status Date / Time No Known Allergies Allergy Verified 10/15/23 11:55 [No Known Allergies*] Review of Systems Review of Systems: Yes all other systems are reviewed and are negative Constitutional: Constitutional: Reports as per HPI [facility] Past Medical History Medical History Asthma Chronic pyelonephritis Obesity (BMI 30-39.9) PCOS (polycystic ovarian syndrome) (~10/13/20) Renal disease Renal hypoplasia Suicidal ideations Surgical History No pertinent past surgical history Family History Family History Father No problems noted. Mother No problems noted. Social History Social History Alcohol intake: current Alcohol intake frequency: does not drink Patient Tobacco Use Status: Never used Tobacco Smoked in Last 30 Days: No Use of substances other than those prescribed or required for medical reasons: No Substance Use Type: Marijuana Advance Directives: No Advance Directives Information Provided: No Gender identity: Female Physical Exam ED Vital Signs: Vital Signs - 24 hr 10/15/23 11:55 10/15/23 14:49 10/15/23 17:35 Temperature 97.7 F 98.7 F 99.3 F Pulse Rate 106 H 105 H 92 Respiratory Rate 18 16 20 Blood Pressure 118/75 127/74 117/69 Pulse Oximetry 98 99 98 Oxygen Delivery Method Room Air Room Air Room Air 10/15/23 20:00 Temperature 98 F Pulse Rate 93 Respiratory Rate 16 Blood Pressure 120/71 Pulse Oximetry 97 Oxygen Delivery Method Room Air BMI result Body Mass Index 33.7 Const General: cooperative, comfortable and no acute distress Orientation/consciousness: patient oriented x3 Limitations: no limitations HENMT Head: Yes normal to inspection, Yes normocephalic and Yes atraumatic Ears: hearing grossly normal bilaterally and TM's normal bilaterally General nose exam: Normal external nose present Face and sinus: Yes normal facial exam Mouth: Normal oral and palatal mucosa present, oropharynx normal and moist mucous membranes Throat: Yes posterior oropharynx normal Eyes General: appearance normal, both eyes and all related structures Eyelids: Yes eyelids normal Conjunctivae: conjunctivae normal Sclerae: sclerae normal Pupils: Equal, round and reactive pupils present EOM: EOMs intact bilaterally Neck Neck: Yes normal visual inspection, Yes full ROM and Yes no lymphadenopathy Lymphatic: no lymphadenopathy noted Chest Chest palpation & inspection: normal inspection of the chest Resp Effort & Inspection: normal respiratory effort and able to speak in complete sentences Auscultation: clear to auscultation bilaterally, no crackles, no rales, no rhonchi and no wheezes Cardio Rate: regular rate Rhythm: regular rhythm Heart sounds: S1 normal heart sound present and S2 normal heart sound present GI Other: Abdomen is soft, nontender, nondistended Inspection: Yes normal to inspection Skin General skin exam: no rashes or lesions noted Trauma: no lacerations or abrasions Wounds: no wounds Neuro General: patient oriented x3 and moves all extremities Cranial nerves: Yes Equal, round and reactive pupils present Extrem General: Yes normal to inspection Right upper extremity: normal to inspection Left upper extremity: normal to inspection Right lower extremity: normal to inspection Left lower extremity: normal to inspection Course Course Course Narrative: RME- 23-year-old female presents for evaluation of fevers, body aches, nausea and vomiting that started last night around 5:00 p.m.. Plan for viral swabs. She is quite well appearing Reevaluation(s) Reevaluation #1: Patient was requesting food and beverage about 1 hour ago which she ate without any vomiting. Chemistry still pending, has coagulated in the lab twice. Redraw will be performed. Patient has no leukocytosis, stable H&H. Tested negative for COVID and flu. Patient feeling slightly nauseous, Zofran 4 mg IV push ordered will continue to monitor. Time: 17:42 Reevaluation #2: Pt eating,drinking, symptoms improved and requesting dispo. Sxs likely viral, given return precautions. pt stable for d/c. Medications Administered Discontinued Medications Generic Name Dose Route Start Last Admin Trade Name Freq PRN Reason Stop Dose Admin Sodium Chloride 1,000 mls @ 999 mls/hr 10/15/23 14:30 10/15/23 17:19 Ns IV 10/15/23 15:30 Infused .Q1H1M ONE Infusion Ondansetron HCl 4 mg 10/15/23 17:39 10/15/23 18:50 Ondansetron Hcl 4 Mg/2 Ml Vial IVPUSH 10/15/23 17:40 4 mg ONCE ONE Administration Medical Decision Making Medical Decision Making [facility] Narrative: This is a 23-year-old female presenting to the emergency department for evaluation of nausea, vomiting, diarrhea chills. She endorses urinary frequency, denies any dysuria. Denies sick contacts. On arrival, vital signs within normal limits. She is eating and drinking without difficulty however endorsing nausea. Abdomen is soft, nontender. She is well appearing. Given multiple episodes of vomiting and diarrhea, will give 1 L of IV fluids plus or minus antiemetics. Will check basic labs to ensure no leukocytosis, or acute kidney injury. Differential Diagnosis Differential Diagnoses: The differential diagnosis associated with the presentation includes Dehydration, electrolyte abnormality, viral syndrome, gastroenteritis, gastritis, urinary tract infection Admission/Observation Consideration of admission/observation: Escalation of care including admission/observation considered Patient would have been admitted to the hospital had her work up had any findings where hospital admission was appropriate and her clinical presentation warranted hospital admission. Lab Data MDM Lab Attestation statement: I reviewed the patient's lab results. See course comment 10/15/23 15:12 10/15/23 17:44 Labs: Lab Results 10/15/23 10/15/23 10/15/23 Range/Units 12:52 15:12 17:44 WBC 9.6 (4.8-10.8) X10*3/uL RBC 4.97 (4.20-5.50) X10*6/uL Hgb 14.3 (12.0-16.0) g/dl Hct 41.7 (37.0-47.0) % MCV 83.9 (80.0-98.0) fL MCH 28.8 (27.0-33.0) pg MCHC 34.3 (31.0-35.0) g/dl RDW 12.0 (11.0-16.0) % Plt Count TNP MPV 10.8 (9.4-12.3) fL Immature Gran % (Auto) 0.4 (0.0-0.4) % Neut % (Auto) 80.4 H (45-73) % Lymph % (Auto) 12.7 L (20-40) % Thayer % (Auto) 5.7 (2-11) % Eos % (Auto) 0.4 (0-4) % Baso % (Auto) 0.4 (0-2) % Lymph # (Auto) 1.2 (1.2-4.9) X10*3/uL Thayer # (Auto) 0.5 (0.1-1.2) X10*3/uL Eos # (Auto) 0.0 (0.0-0.4) X10*3/uL Baso # (Auto) 0.0 (0.0-0.2) X10*3/uL Abs Immat Gran (auto) 0.04 H (0.00-0.03) X10*3/uL Absolute Neuts (auto) 7.7 (2.0-8.3) x10*3/uL Absolute Nucleated RBC 0.000 (0.0-0.012) X10*3/uL Nucleated RBC % (auto) 0.0 (0.0-0.2) /100WBC Smear Tech's Comments VERIFIED Sodium 138 (135-145) mmol/L Potassium 3.6 (3.3-5.1) mmol/L Chloride 102 (96-108) mmol/L Carbon Dioxide 26 (22-29) mmol/L Anion Gap 14 (12-20) BUN 10 (9-16) mg/dL Creatinine 0.68 (0.5-1.4) mg/dL Estim Creat Clear Calc 135.0 Estimated GFR > 60 Random Glucose 119 H (60-115) mg/dL Calcium 8.4 D (8.4-10.2) mg/dL Total Bilirubin 0.6 (0.0-1.0) mg/dL Direct Bilirubin 0.2 (0.0-0.5) mg/dL AST 24 (5-31) U/L ALT 66 H (0-31) U/L Alkaline Phosphatase 88 (39-117) U/L Total Protein 6.7 (6.5-8.0) g/dL Albumin 3.8 (3.5-5.0) g/dL Lipase 11 (8-78) U/L Beta HCG, Quant < 2 mIU/mL Urine Color Urine Appearance Urine pH (5.0-9.0) Ur Specific [place] (1.005-1.025) Urine Protein (Neg-Trace) mg/dL Urine Glucose (UA) (Negative) mg/dL Urine Ketones (Negative) mg/dL Urine Blood (Negative) Urine Nitrite (Negative) Ur Leukocyte Esterase (Negative) Urine RBC (0-2) /HPF Urine WBC (0-5) /HPF Ur Squamous Epith Cells (0-2) /HPF Urine Bacteria (None Seen) Hyaline Casts (0-2) /LPF COVID-19 (SONYA) Negative (Negative) COVID-19 Clin Com See Note Influenza Type A (MARIAJOSE) Negative (Negative) Influenza Type B (MARIAJOSE) Negative (Negative) Influenza A & B Note See Note 10/15/23 Range/Units 18:49 WBC (4.8-10.8) X10*3/uL RBC (4.20-5.50) X10*6/uL Hgb (12.0-16.0) g/dl Hct (37.0-47.0) % MCV (80.0-98.0) fL MCH (27.0-33.0) pg MCHC (31.0-35.0) g/dl RDW (11.0-16.0) % Plt Count MPV (9.4-12.3) fL Immature Gran % (Auto) (0.0-0.4) % Neut % (Auto) (45-73) % Lymph % (Auto) (20-40) % Thayer % (Auto) (2-11) % Eos % (Auto) (0-4) % Baso % (Auto) (0-2) % Lymph # (Auto) (1.2-4.9) X10*3/uL Thayer # (Auto) (0.1-1.2) X10*3/uL Eos # (Auto) (0.0-0.4) X10*3/uL Baso # (Auto) (0.0-0.2) X10*3/uL Abs Immat Gran (auto) (0.00-0.03) X10*3/uL Absolute Neuts (auto) (2.0-8.3) x10*3/uL Absolute Nucleated RBC (0.0-0.012) X10*3/uL Nucleated RBC % (auto) (0.0-0.2) /100WBC Smear Tech's Comments Sodium (135-145) mmol/L Potassium (3.3-5.1) mmol/L Chloride (96-108) mmol/L Carbon Dioxide (22-29) mmol/L Anion Gap (12-20) BUN (9-16) mg/dL Creatinine (0.5-1.4) mg/dL Estim Creat Clear Calc Estimated GFR Random Glucose (60-115) mg/dL Calcium (8.4-10.2) mg/dL Total Bilirubin (0.0-1.0) mg/dL Direct Bilirubin (0.0-0.5) mg/dL AST (5-31) U/L ALT (0-31) U/L Alkaline Phosphatase (39-117) U/L Total Protein (6.5-8.0) g/dL Albumin (3.5-5.0) g/dL Lipase (8-78) U/L Beta HCG, Quant mIU/mL Urine Color Dark Yellow Urine Appearance Clear Urine pH 6.0 (5.0-9.0) Ur Specific [place] >= 1.030 H (1.005-1.025) Urine Protein 30 (1+) H (Neg-Trace) mg/dL Urine Glucose (UA) Negative (Negative) mg/dL Urine Ketones Trace (Negative) mg/dL Urine Blood Negative (Negative) Urine Nitrite Negative (Negative) Ur Leukocyte Esterase Negative (Negative) Urine RBC 0-2 (0-2) /HPF Urine WBC 0-5 (0-5) /HPF Ur Squamous Epith Cells 6-10 (0-2) /HPF Urine Bacteria 1+ (None Seen) Hyaline Casts 0-2 (0-2) /LPF COVID-19 (SONYA) (Negative) COVID-19 Clin Com Influenza Type A (MARIAJOSE) (Negative) Influenza Type B (MARIAJOSE) (Negative) Influenza A & B Note Tests considered The following testing was considered but not selected: Abdominal US - however normal LFTS, no RUQ pain to suggest gallbladder etiology Ct scan, however given workup, tolerating PO, deferred imaging. Discharge Plan Discharge Clinical Impression: Nausea & vomiting Patient Disposition: Home, Self-Care Instructions: Acute Nausea and Vomiting (ED) Additional Instructions: You were seen in the emergency department due to nausea, vomiting, and diarrhea. Your blood work was reassuring today. You tested negative for COVID and flu. Your urine does not appear to be infected. We are sending out for further testing, we will call you with any abnormal results. If any new or worsening symptoms occur, including chest pain, shortness on breath worsening abdominal pain, please return for re-evaluation. Prescriptions: New ondansetron 4 mg tablet,disintegrating 4 mg PO Q6-8H PRN (Reason: nausea and vomiting) Qty: 10 0RF No Action cephalexin 500 mg capsule 500 mg PO Q6H 10 Days Qty: 40 0RF prenat.vits,tony,[id number] Tablet 1 tab PO DAILY Stand Alone Forms: Work/School Release Interventions: ED Discharge Assessment Last Done: 10/15/23 20:06 Discharge Date/Time: 10/15/23 20:06
[2023-10-15 13:18] LABS: COVID-19 Test Negative (Negative); IDNOW Serial# 08D9AD1C
[2023-10-15 13:19] LABS: IDNOW Serial# 9DB6401D; Influenza A Negative (Negative); Influenza B2 Negative (Negative)
[2023-10-15 14:49] VITALS: BP 127/74; PULSE 105; RESP 16; TEMP 37.1; O2SAT 99
[2023-10-15] MEDS: 0.9 % Sodium Chloride 1,000 ML 999 ML IV (15:28)
[2023-10-15 15:38] LABS: Imm Gran Abs Auto 0.04 X10*3/uL (0.00-0.03); Imm Gran Pct Auto 0.4 % (0.0-0.4); MANUAL DIFF FLAG SCAN; PLT CLUMP 1; SCAN SMEAR FLAG 1
[2023-10-15 15:40] LABS: Basophils Percent Auto 0.4 % (0-2); Eosinophils Percent Auto 0.4 % (0-4); Hematocrit 41.7 % (37.0-47.0); Hemoglobin 14.3 g/dl (12.0-16.0); Lymphocytes Absolute Auto 1.2 X10*3/uL (1.2-4.9); Lymphocytes Percent Auto 12.7 % (20-40); Mean Corpuscular HGB Conc 34.3 g/dl (31.0-35.0); Mean Corpuscular Hemoglobin 28.8 pg (27.0-33.0); Mean Corpuscular Volume 83.9 fL (80.0-98.0); Mean Platelet Volume 10.8 fL (9.4-12.3); Monocytes Absolute Auto 0.5 X10*3/uL (0.1-1.2); Monocytes Percent Auto 5.7 % (2-11); Neutrophils Absolute Auto 7.7 x10*3/uL (2.0-8.3); Neutrophils Percent Auto 80.4 % (45-73); Red Blood Count 4.97 X10*6/uL (4.20-5.50)
[2023-10-15 15:44] LABS: White Blood Count 9.6 X10*3/uL (4.8-10.8)
[2023-10-15 16:02] LABS: SLIDE REVIEW VERIFIED
--- NOTE | 2023-10-15 17:13 | PC.NURSE ---
inquired on phone w lab as pending chemistry remains and rn had sent a chemistry as ordered w the earlier drawn and sent cbc at the same time.
[2023-10-15 17:35] VITALS: BP 117/69; PULSE 92; RESP 20; TEMP 37.4; O2SAT 98
[2023-10-15 18:17] LABS: Alanine Aminotransferase 66 U/L (0-31); Albumin Level 3.8 g/dL (3.5-5.0); Alkaline Phosphatase 88 U/L (39-117); Anion Gap 14 (12-20); Aspartate Amino Transferase 24 U/L (5-31); Bilirubin Direct 0.2 mg/dL (0.0-0.5); Bilirubin Total 0.6 mg/dL (0.0-1.0); Blood Urea Nitrogen 10 mg/dL (9-16); Calcium 8.4 mg/dL (8.4-10.2); Carbon Dioxide 26 mmol/L (22-29); Chloride 102 mmol/L (96-108); Estimated Glomerular Filt Rate > 60; Glucose Random 119 mg/dL (60-115); HCG Quantitative < 2 mIU/mL; Lipase 11 U/L (8-78); Potassium 3.6 mmol/L (3.3-5.1); Sodium 138 mmol/L (135-145); Total Protein 6.7 g/dL (6.5-8.0)
[2023-10-15] MEDS: ondansetron HCL 4 MG/2 ML VIAL IVPUSH (18:50)
[2023-10-15 18:58] LABS: Appearance Urine Clear; Color Urine Dark Yellow; Glucose Urine UA Negative (Negative); Leukocyte Esterase Urine Negative (Negative); Nitrite Urine Negative (Negative); Specific Gravity - Urine >= 1.030 (1.005-1.025); UMIC TRIGGER UACC YES; Urine Blood Negative (Negative); Urine Ketones Trace mg/dL (Negative); Urine Protein 30 (1+) mg/dL (Neg-Trace)
[2023-10-15 19:23] LABS: Bacteria Urine 1+ (None Seen); Hyaline Casts Urine 0-2 /LPF (0-2); RBC Urine 0-2 /HPF (0-2); WBC Urine 0-5 /HPF (0-5)
[2023-10-15 20:00] VITALS: BP 120/71; PULSE 93; RESP 16; TEMP 36.6; O2SAT 97
== END 2023-10-15 20:06 | disposition home or self-care (01) ==
PROVIDERS: Physician Assistant; Physician Assistant Medical; Emergency Provider Emergency Medicine Emergency Medical Services
DX: R11.2 Nausea with vomiting, unspecified (principal); R51.9 Headache, unspecified; R35.0 Frequency of micturition; Z79.899 Other long term (current) drug therapy; Z11.52 Encounter for screening for COVID-19
CPT/HCPCS: 36415; 80048; 80076; 81001; 83690; 84702; 85025; 87502; 87635; 96361; 96374; 99284; 99285; J2405

== ENCOUNTER 2023-12-07 19:11 | Emergency (ER) | payer OTHER, SELFPAY ==
[2023-12-07 19:29] VITALS: BP 133/82; PULSE 100; RESP 18; TEMP 36.8; O2SAT 99; BMI 35.1
[2023-12-07 19:57] LABS: IDNOW Serial# 08D9AD1C; Strep A Nucleic Acid n (Negative)
--- NOTE | 2023-12-07 20:00 | ED.GENADULT ---
HPI - General Adult General Chief complaint: General Medical Stated complaint: right side pain/throat Time Seen by Provider: 12/07/23 19:59 Source: patient, RN notes reviewed and old records reviewed Mode of arrival: ambulatory Limitations: no limitations History of Present Illness HPI narrative: 23 year old female with pmhx significant for PCOS, obesity, renal disease with chronic pyelonephritis, and asthma presents to the ED for evaluation of sore throat and odynophagia x2 days. Admits to pain on swallowing which has been worsening. States she feels a bump to the right side of her throat along with right ear pain. She has not taken OTC pain meds for this at home. She states she has been able to swallow food/drink without issue. Denies recent illness. Denies known sick contacts. Denies fever, chills, cough, sputum production, rashes. UTD with vaccinations. Related Data Home Medications Medication Instructions Recorded Confirmed prenat.vits,tony,[id number]-[id number] 1 tab PO DAILY 01/17/22 01/17/22 Previous Rx's Medication Instructions Recorded cephalexin 500 mg capsule 500 mg PO Q6H 10 days #40 caps 01/12/23 ondansetron 4 mg disintegrating 4 mg PO Q6-8H PRN nausea and 10/15/23 tablet vomiting #10 tabs prednisone 20 mg tablet 40 mg (2 x 20 mg) PO DAILY 5 days 12/07/23 #10 tabs Allergies Allergy/AdvReac Type Severity Reaction Status Date / Time No Known Allergies Allergy Verified 12/07/23 19:29 [No Known Allergies*] Review of Systems Review of Systems: Constitutional: No fever, chills, fatigue, night sweats, weight changes ENT/Mouth: No hearing loss, nasal congestion, sinus pain, rhinorrhea, +sore throat, +odynophagia, +r ear pain Eyes: No eye pain, swelling, redness, vision changes, discharge Cardio: No chest pain, palpitations, LAMB, orthopnea, peripheral edema Pulm: No SOB, cough, sputum, wheezing, dyspnea, hemoptysis GI: No nausea, vomiting, hematemesis, abdominal pain, diarrhea, constipation, hematochezia, melena : No irregular bleeding, dysuria, frequency, urgency, hesitancy, hematuria, flank pain, urinary flow changes, urinary incontinence or retention MSK: No back pain, neck pain, joint pain, myalgias Skin: No lesions, rashes Neuro: No weakness, numbness, paresthesias, LOC, dizziness, headache Psych: No anxiety/panic, depression, SI/HI, AH/VH All other systems reviewed and are negative. [facility] Past Medical History Attestation statement: The following information was validated with the patient. Source: old records reviewed and nursing notes reviewed Medical History Obesity (BMI 30-39.9) PCOS (polycystic ovarian syndrome) (~10/13/20) Chronic pyelonephritis Renal hypoplasia Suicidal ideations Asthma Renal disease Surgical History No pertinent past surgical history Family History Family History Father No problems noted. Mother No problems noted. Social History Social History Alcohol intake: current Alcohol intake frequency: does not drink Patient Tobacco Use Status: Never used Tobacco Substance Use Type: Marijuana Advance Directives: No Advance Directives Information Provided: No Gender identity: Female Physical Exam ED Vital Signs: Vital Signs - 24 hr 12/07/23 19:29 12/07/23 21:29 Temperature 98.2 F 98.2 F Pulse Rate 100 100 Respiratory Rate 18 18 Blood Pressure 133/82 133/82 Pulse Oximetry 99 99 Oxygen Delivery Method Room Air Room Air BMI result Body Mass Index 35.1 vital signs stable, afebrile Const General: cooperative, healthy appearing, comfortable and no acute distress Orientation/consciousness: patient oriented x3 HENMT Other: + posterior oropharynx erythematous. bilateral tonsillar edema/ erythema. no tonsilar kissing or exudates. uvula is midline. no peritonsilar masses. controlling secretions & speaking in complete sentences. no muffled voice. no stridor. airway patent. Head: Yes normal to inspection, Yes No palpable skull fracture present, Yes normocephalic and Yes atraumatic Ears: hearing grossly normal bilaterally, external ears normal, TM's normal bilaterally, TM normal on the left, EAC's normal and mastoids normal Eyes General: appearance normal, both eyes and all related structures Conjunctivae: conjunctivae normal Sclerae: sclerae normal Pupils: Equal, round and reactive pupils present Neck Other: + right anterior cervical LAD + no submental or submandibular LAD Neck: Yes normal visual inspection, Yes full ROM and Yes no meningeal signs Resp Effort & Inspection: normal respiratory effort, able to speak in complete sentences and no stridor Auscultation: clear to auscultation bilaterally Cardio Rate: regular rate Rhythm: regular rhythm GI Other: + no splenomegaly Inspection: Yes normal to inspection Skin General skin exam: no rashes or lesions noted Neuro General: patient oriented x3, gait normal and no meningeal signs Cranial nerves: Yes Equal, round and reactive pupils present Course Course Course Narrative: 2119-- Centor criteria 2 (cervical LAD and absent cough) --> strep swab ordered. Patient has tested negative for covid/flu/rsv as well as strep throat. Exam is most consistent with a viral tonsillitis, given abscess of exudates and normal uvula. no concern for bacterial cause at this time. patient has tolerated PO decadron in ED with improvement in pain. > on re-evaluation, tonsilar swelling has improved however has not completely resolved. Will send patient home w/ course of Prednisone for swelling. educated pt on worrisome signs and symptoms/ when to return to the ED. Patient has remained stable throughout ED visit today and continued to control secretions/ speak in complete sentences. No concern for airway compromise. All questions answered at this time. Patient is agreeable with disposition and stable for discharge. Medications Administered Discontinued Medications Generic Name Dose Route Start Last Admin Trade Name Freq PRN Reason Stop Dose Admin Dexamethasone Sodium Phosphate 10 mg 12/07/23 20:11 12/07/23 20:19 Dexamethasone Sod Phosphate 10 Mg/Ml Vial IVPUSH 12/07/23 20:12 10 mg ONCE ONE Administration Medical Decision Making Medical Decision Making MDM Narrative: 23 year old female with pmhx significant for PCOS, obesity, renal disease with chronic pyelonephritis, and asthma presents to the ED for evaluation of sore throat and odynophagia x2 days. Vitals are stable. Afebrile. She is nontoxic appearing and in NAD. Talking on FaceTime with friends. posterior oropharynx erythematous. bilateral tonsillar edema/ erythema. no tonsilar kissing or exudates. uvula is midline. no peritonsillar masses. controlling secretions & speaking in complete sentences. no muffled voice. no stridor. airway patent. There is right anterior cervical LAD. no submental or submandibular LAD. Bilateral EACs and TMs wnl. Differential diagnosis includes viral syndrome, strep throat. Unlikely [employer], retropharyngeal abscess, epiglottitis, ludwigs angina. exam not consistent with otitis media, otitis externa, malignant otitis externa, or mastoiditis. Centor criteria 2 (cervical LAD and absent cough) --> strep swab ordered. Viral serology ordered. Differential Diagnosis Differential Diagnoses: The differential diagnosis associated with the presentation includes as above. Admission/Observation not indicated. Lab Data MDM Lab Attestation statement: I reviewed the patient's lab results. as above. Labs: Lab Results 12/07/23 Range/Units 19:36 S. pyogenes GrpA MARIAJOSE n (Negative) External Record Review External record reviewed: Inpatient record, Office record, Outpatient record, Prior outpatient labs, Prior outpatient radiology, Primary care record and Outside ED record Tests considered The following testing was considered but not selected: I considered obtaining CT soft tissues neck however exam is noti consistent with [employer] or retropharyngeal abscess- not warranted at this time. Prescription Management I considered prescription management with: Pain Medication and Other (prednisone) Social Determinants Patient?s care significantly limited by Social Determinants of Health including: Other Social Determinant of Health Critical Care Time Critical Care Time Critical Care Time: Yes Total Critical Care Time: 31 Attestation: Critical care time in the amount of 31 minutes has been provided to the patient in terms of direct patient care, frequent reevaluation, review and interpretation of medical data and results, and management of potentially life-threatening conditions. This is all outside of any medical procedures. Discharge Plan Discharge Clinical Impression: Tonsillitis Patient Disposition: Home, Self-Care Instructions: Tonsillitis (ED) Additional Instructions: You tested negative for covid/flu/rsv/strep throat. You were given a dose of steroids in ED today. Please start prednisone tomorrow to help with swelling. Follow up with your PCP as needed. Please return to the ED with new or worsening symptoms. In the case of emergency call 911. Prescriptions: New prednisone 20 mg tablet 40 mg PO DAILY 5 Days Qty: 10 0RF No Action cephalexin 500 mg capsule 500 mg PO Q6H 10 Days Qty: 40 0RF ondansetron 4 mg tablet,disintegrating 4 mg PO Q6-8H PRN (Reason: nausea and vomiting) Qty: 10 0RF prenat.vits,tony,[id number] Tablet 1 tab PO DAILY Interventions: ED Discharge Assessment Last Done: 12/07/23 21:29 Discharge Date/Time: 12/07/23 21:30
[2023-12-07] MEDS: dexAMETHasone sod phosphate 10 MG/ML VIAL IVPUSH (20:19)
[2023-12-07 21:29] VITALS: BP 133/82; PULSE 100; RESP 18; TEMP 36.8; O2SAT 99
== END 2023-12-07 21:30 | disposition home or self-care (01) ==
PROVIDERS: Emergency Provider Emergency Medicine
DX: J03.90 Acute tonsillitis, unspecified (principal); Z79.899 Other long term (current) drug therapy
CPT/HCPCS: 87651; 99282; 99283; J1100

== ENCOUNTER 2024-03-18 09:03 | Outpatient (AMB) | payer OTHER, SELFPAY ==
--- NOTE | 2024-03-18 09:03 | A.OFFPC_ITS ---
Vital Signs 03/18/24 09:04 Height 5 ft 3 in Weight 190 lb 0.2 oz BMI 33.7 BP 122/68 Blood Pressure Location Lt brachial Position Sitting Pulse 80 Pulse Source Pulse Oximeter Pulse Oximetry (%) 98 Oxygen Delivery Method Room Air Intake Visit Reasons: Annual exam- NEEDS PHQ9 Intake Note: Patient is here today for a physical. Explosive Operator Required: No Allergies No Known Allergies [No Known Allergies*] Allergy (Verified 03/18/24 09:14) Medication List - Last Reconciled 03/18/24 by Yulissa Dorantes PA-C No Known Home Meds Tobacco use date assessed: 03/18/24 Dental Screening Dental Screen Date: 03/18/24 Did you have a dental visit in the last 12 months?: Yes Did you have a dental problem in the last 6 months where you did not have access to dental care?: No Was dental information given to patient?: Patient has dentist HPI Annual exam- NEEDS PHQ9 HPI Details 23-year-old obese female with past medic al history of PCOS coming in for annual physical. Review of the notes the patient was seen in the ED 10/15/2023 for nausea and vomiting was given Zofran. Seen again in the ED 12/04/2023 for sore throat and given prednisone for pharyngitis. Patient was being followed by [facility] prior to . When she became she was transferred to [facility] due to PCOS and impaired kidney function. She has not been seen by OBGYN since her in 2021 and is unsure of last date of Pap smear. Presently she has no concerns. COUNTS INCLUDE 234 BEDS AT THE [facility] Medical History Obesity (BMI 30-39.9) PCOS (polycystic ovarian syndrome) (~10/13/20) Chronic pyelonephritis Renal hypoplasia Suicidal ideations Asthma Renal disease Surgical History No pertinent past surgical history Family History Father No problems noted. Mother No problems noted. Social History Housing: Apartment Alcohol intake: current Alcohol intake frequency: does not drink Patient Tobacco Use Status: Never used Tobacco e-Cigarette/Vaping Use: Currently Using Substance Use Type: Marijuana service: No Current occupational status: employed and unemployed Gender identity: Female Cognitive needs: No Hearing needs: No Vision needs: No Female Reproductive History Menstrual Age of Menarche: 13 Total pregnancies: 1 Full term: 1 History of abnormal pap smear: No History of STI: No Questionnaire PHQ-9 Over the last 2 weeks, how often have you been bothered by any of the following problems? 1. Little interest or pleasure in doing things: not at all 2. Feeling down, depressed, or hopeless: not at all 3. Trouble falling or staying asleep, or sleeping too much: not at all 4. Feeling tired or having little energy: not at all 5. Poor appetite or overeating: not at all 6. Feeling bad about yourself - or that you are a failure or have let yourself or your family down: not at all 7. Trouble concentrating on things, such as reading the newspaper or watching television: not at all 8. Moving or speaking so slowly that other people could have noticed. Or the opposite - being so fidgety or restless that you have been moving around a lot more than usual: not at all 9. Thoughts that you would be better off or of hurting yourself in some way: not at all Total score: 0 Depression Screening Interpretation: Negative Depression Screening Done: Yes 29432 - PHQ-9 Billing: Yes Source: Developed by Drs. Fabricio Ying, Lurdes Perez, Robbie Johnston and colleagues, with an educational esthela from [employer]. Thrive Questionnaire Date Thrive assessed: 03/18/24 I am a: Patient What is your living situation today?: I have a steady place to live Within the past 12 months, did the food you bought not last and you didn't have the money to get more?: Never true Within the past 12 months, did you worry whether your food would run out before you got money to buy more?: Never true Do you have trouble paying for medicines?: No Do you have trouble getting transportation to medical appointments?: No Do you have trouble paying your heating and electricity bill?: No Do you have trouble taking care of your child, family member or friend?: No Do you have trouble with day-to-day activities such as bathing, preparing meals, shopping, managing finances, etc.?: No Are you currently unemployed and looking for a job?: No Are you interested in more education?: No Please select the resources that you would like help with: None Currently or been in a relationship where the following occur: No concerns reported THRIVE Score: 0 AUDIT C Alcohol Use Questionnaire (AUDIT-C) 1. How often do you have a drink containing alcohol?: Never 3. How often do you have six or more drinks on one occasion?: Never Total Score: 0 MONIQUE-7 AMB Questionnaire MONIQUE-7 Date MONIQUE - 7 assessed: 03/18/24 Feeling nervous, anxious, or on edge: 0 = Not at all Not being able to stop or control worryin = Not at all Worrying too much about different things: 0 = Not at all Trouble relaxin = Not at all Being so restless that it is hard to sit still: 0 = Not at all Becoming easily annoyed or irritable: 0 = Not at all Feeling afraid as if something awful might happen: 0 = Not at all Total MONIQUE-7 score (0-4 normal; 5-9 mild; 10-14 moderate; 15-21 severe): 0 Source: Developed by Drs. Fabricio Ying, Lurdes Perez, Robbie Johnston and colleagues, with an educational esthela from [employer]. MONIQUE-7 Assessment Billing MONIQUE-7 Assessment Tool: MONIQUE-7 Assessment 38769 Review of Systems Const Denies chills, Denies fatigue, Denies fever(s) and Denies frequent falls Eyes Details: Uses glasses at night Denies blurry vision, Denies change in vision and Reports decreased night vision ENT Denies dysphagia, Denies dizziness, Denies facial pain, Denies nasal congestion, Denies odynophagia, Denies sinus pain and Denies sore throat Card Denies chest pain, Denies syncope, Denies pedal edema, Denies irregular heart rhythm, Denies leg edema and Denies dyspnea Resp Denies cough and Denies dyspnea GI Denies abdominal pain, Denies constipation, Denies dysphagia, Denies diarrhea and Denies odynophagia Denies difficulty voiding and Denies dysuria Musc Details: Mild intermittent right hand pain and cramping with prolonged use Denies abnormal gait Skin/Breast Reports system reviewed and no additional complaints, except as documented Neuro Denies abnormal gait, Denies confusion, Denies dizziness, Denies syncope and Denies frequent falls Psych Reports no additional complaints and Denies confusion Endo Denies fatigue Physical exam (Primary Care) Vital Signs: Oxygen Delivery Method Room Air 03/18/24 09:04 Tobacco/Smoking Status: Tobacco use Status Patient Tobacco Use Status Never used Tobacco 11/24/21 13:53 Depression Screening Interpretation: Negative Currently or been in a relationship where the following occur: No concerns reported Const General: cooperative, healthy appearing, comfortable and no acute distress; No confusion Orientation/consciousness: patient oriented x3 and No confusion Limitations: no limitations HENMT Head: Yes normocephalic Ears: hearing grossly normal bilaterally, external ears normal and TM's normal bilaterally General nose exam: Normal external nose present Face and sinus: Yes normal facial exam Mouth: Normal oral and palatal mucosa present and oropharynx normal Throat: Yes posterior oropharynx normal and Yes tonsils normal Eyes General: appearance normal, both eyes and all related structures Pupils: Equal, round and reactive pupils present EOM: EOMs intact bilaterally Neck Neck: Yes normal visual inspection, Yes full ROM and Yes no lymphadenopathy Chest Chest palpation & inspection: normal inspection of the chest Resp Effort & Inspection: normal respiratory effort Auscultation: clear to auscultation bilaterally, no crackles, no rales, no rhonchi and no wheezes Cardio Rate: regular rate Rhythm: regular rhythm Heart sounds: S1 normal heart sound present and S2 normal heart sound present GI Inspection: Yes normal to inspection Palpation (GI): Soft to palpation, not firm, nontender and not rigid Auscultation: normal bowel sounds Rectal Exam - Female: deferred General: Yes no CVA tenderness Back/Spine/Pelvis Back: no CVA tenderness Skin General skin exam: no rashes or lesions noted Neuro General: patient oriented x3 and No confusion Cranial nerves: Yes Equal, round and reactive pupils present Gait exam (Neuro): Normal gait present Extrem General: Yes normal to inspection, Yes full ROM, No no pedal edema and No edema Psych Appearance: grossly normal Mental Status: mental status grossly normal Affect: normal affect Insight: Good insight present (Psych) Judgement: Good judgement present (Psych) Assessment and Plan Assessment & Plan (1) PCOS (polycystic ovarian syndrome): Onset Date: ~10/13/20 Code(s): E28.2 - Polycystic ovarian syndrome Plan: Referred to [facility] gynecology. Patient will also call for appointment. (2) Annual physical exam: Code(s): Z00.00 - Encounter for general adult medical examination without abnormal findings Plan: Patient had no acute problems today. She follows with eye exams as needed. Unsure of last Pap and will follow up with Gynecology as soon as possible. Blood work ordered to follow-up on elevated liver tests while in the ED, and added on thyroid function testing and lipid panel. Up-to-date on all vaccinations and will bring records to next appointment. We will follow up yearly or sooner as needed. Orders: Orders Free T4 (Free Thyroxine) Today Z00.00 - Encounter for general adult medical examination without abnormal findings Comprehensive Met. Panel Today Z00.00 - Encounter for general adult medical examination without abnormal findings TSH reflex Free T4 Today Z00.00 - Encounter for general adult medical examination without abnormal findings Lipid Panel Today Z00.00 - Encounter for general adult medical examination without abnormal findings Referrals [facility] [facility] Referral E28.2 - Polycystic ovarian syndrome Coding Level of Care Code Est Pt Prev Care 18-39y(56424) Diagnoses PCOS (polycystic ovarian syndrome) E28.2 Annual physical exam Z00.00 Additional Codes MONIQUE-7 Assessment Billing - MONIQUE-7 Assessment Tool: MONIQUE-7 Assessment [id number] ([id number])
[2024-03-18 09:04] VITALS: BP 122/68; PULSE 80; O2SAT 98; BMI 33.7
== END 2024-03-18 09:38 | disposition home or self-care (01) ==
DX: Z00.00 Encounter for general adult medical examination without abnormal findings (principal); E28.2 Polycystic ovarian syndrome
CPT/HCPCS: 99395